=== PATIENT | male | born 1935 | race Two or more races ===

== ENCOUNTER → 2018-07-22 | Outpatient (CLI) | payer MEDICARE, BC ==
[2018-07-22 12:01] LABS: Basophils # (auto) 0.1 uL; Basophils % (auto) 1.3 % (0.0-2.0); Eosinophils # (auto) 0.3 uL; Eosinophils % (auto) 3.9 % (0.0-7.0); Hematocrit 45.4 % (41.0-53.0); Hemoglobin 15.5 g/dL (13.5-17.5); Lymphocytes # (auto) 1.9 uL; Mean Corpuscular Hemoglobin 33.3 pg (28.0-32.0); Mean Corpuscular Hgb Conc. 34.2 g/dL (32.0-36.0); Mean Corpuscular Volume 97.3 fL (80.0-100.0); Monocytes # (auto) 0.7 uL; Monocytes % (auto) 8.3 % (0.0-12.0); Neutrophils # (auto) 5.3 uL; Neutrophils % (auto) 63.5 % (37.0-80.0); Nucleated Red Blood Cells % 0.1 %; Platelet Count (auto) 214 10^3/uL (140-450); Red Blood Cells 4.66 10^6/uL (4.5-5.90); Red Cell Distribution Width 14.3 % (11.8-14.3); White Blood Cell 8.4 10^3/uL (4.4-10.8)
[2018-07-22 12:06] LABS: Urine Bacteria NONE SEEN /hpf (None Seen); Urine Blood Negative /uL (Negative); Urine Specific Gravity 1.015 (1.001-1.035); Urine WBC 1 /hpf (0 - 3)
[2018-07-22 12:17] LABS: Prothrombin Time 10.7 sec (9.27-12.13)
[2018-07-22 12:59] LABS: Albumin 4.4 g/dL (3.4-5.0); Calcium 9.2 mg/dL (8.5-10.1); Potassium 5.3 mmol/L (3.5-5.1); Total Protein 8.1 g/dL (6.4-8.2)
== END | disposition home or self-care (01) ==
LOC: LAB 11:14
PROVIDERS: ATTEND Internal Medicine Cardiovascular Disease
DX: Z01.812 Encounter for preprocedural laboratory examination (principal); R00.1 Bradycardia, unspecified
CPT/HCPCS: 36415; 80053; 81001; 85025; 85610; 85730

== ENCOUNTER → 2018-07-25 | Outpatient (CLI) | payer MEDICARE, BC ==
[2018-07-25 10:16] LABS: BUN/Creatinine Ratio 20.4; Calcium 8.6 mg/dL (8.5-10.1); Potassium 3.7 mmol/L (3.5-5.1)
== END | disposition home or self-care (01) ==
LOC: LAB 09:15
PROVIDERS: ATTEND Internal Medicine Cardiovascular Disease
DX: I11.9 Hypertensive heart disease without heart failure (principal); E87.5 Hyperkalemia; R00.1 Bradycardia, unspecified
CPT/HCPCS: 36415; 80048

== ENCOUNTER → 2018-08-12 | Outpatient (CLI) | payer MEDICARE, BC ==
[2018-08-12 09:33] LABS: Urine WBC None Seen /hpf (0 - 3)
[2018-08-12 09:55] LABS: Basophils # (auto) 0.1 uL; Eosinophils # (auto) 0.5 uL; Hematocrit 41.6 % (41.0-53.0); Hemoglobin 14.4 g/dL (13.5-17.5); Lymphocytes # (auto) 1.3 uL; Lymphocytes % (auto) 17.1 % (10.0-50.0); Mean Corpuscular Hemoglobin 33.4 pg (28.0-32.0); Mean Corpuscular Hgb Conc. 34.6 g/dL (32.0-36.0); Mean Corpuscular Volume 96.5 fL (80.0-100.0); Monocytes # (auto) 0.7 uL; Monocytes % (auto) 9.5 % (0.0-12.0); Neutrophils % (auto) 65.4 % (37.0-80.0); Nucleated Red Blood Cells % 0.1 %; Platelet Count (auto) 198 10^3/uL (140-450); Red Blood Cells 4.31 10^6/uL (4.5-5.90); Red Cell Distribution Width 13.3 % (11.8-14.3); White Blood Cell 7.6 10^3/uL (4.4-10.8)
[2018-08-12 11:00] LABS: INR 0.99 (0.9-1.15); Prothrombin Time 10.6 sec (9.27-12.13); Urine Bacteria NONE SEEN /hpf (None Seen); Urine Blood Negative /uL (Negative); Urine Specific Gravity 1.012 (1.001-1.035)
[2018-08-12 11:12] LABS: Potassium 4.2 mmol/L (3.5-5.1)
[2018-08-12 11:24] LABS: Albumin 3.9 g/dL (3.4-5.0); BUN/Creatinine Ratio 17.8; Calcium 8.1 mg/dL (8.5-10.1); Total Protein 7.3 g/dL (6.4-8.2)
== END | disposition home or self-care (01) ==
LOC: LAB 09:13
PROVIDERS: ATTEND Internal Medicine Cardiovascular Disease
DX: Z01.810 Encounter for preprocedural cardiovascular examination (principal); I11.9 Hypertensive heart disease without heart failure; E87.5 Hyperkalemia; R00.1 Bradycardia, unspecified; Z95.0 Presence of cardiac pacemaker
CPT/HCPCS: 36415; 80053; 81001; 85025; 85610; 85730

== ENCOUNTER → 2019-04-07 | Outpatient (CLI) | payer MEDICARE, BC ==
[~2019-04-07] VITALS: Ht 170.2 cm; Wt 72.6 kg
[~2019-04-07] MED LIST: ADENOSINE 61 MG in GIVE UN-DILUTED 0 ML IV STA
[2019-04-07 09:35] VITALS: BP 160/90
== END | disposition home or self-care (01) ==
LOC: XYW 08:28
PROVIDERS: ATTEND Internal Medicine
DX: I48.2 Chronic atrial fibrillation (principal)
CPT/HCPCS: 78452; 93017; A9500; J0153

== ENCOUNTER → 2019-04-29 | Outpatient (CLI) | payer MEDICARE, BC | END | disposition home or self-care (01) | LOC: XYW 09:46 | PROVIDERS: ATTEND Internal Medicine | DX: I08.1 Rheumatic disorders of both mitral and tricuspid valves (principal); I48.2 Chronic atrial fibrillation | CPT/HCPCS: 93306 ==

== ENCOUNTER → 2019-05-20 | Outpatient (CLI) | payer MEDICARE, BC ==
[2019-05-20 10:09] LABS: Basophils # (auto) 0.1 uL; Basophils % (auto) 0.9 % (0.0-2.0); Eosinophils # (auto) 0.3 uL; Eosinophils % (auto) 4.1 % (0.0-7.0); Hematocrit 42.2 % (41.0-53.0); Hemoglobin 14.5 g/dL (13.5-17.5); Lymphocytes # (auto) 1.7 uL; Lymphocytes % (auto) 26.5 % (10.0-50.0); Mean Corpuscular Hemoglobin 33.3 pg (28.0-32.0); Mean Corpuscular Hgb Conc. 34.4 g/dL (32.0-36.0); Mean Corpuscular Volume 96.7 fL (80.0-100.0); Monocytes # (auto) 0.6 uL; Monocytes % (auto) 9.2 % (0.0-12.0); Neutrophils # (auto) 3.7 uL; Neutrophils % (auto) 59.3 % (37.0-80.0); Platelet Count (auto) 190 10^3/uL (140-450); Red Blood Cells 4.36 10^6/uL (4.5-5.90); Red Cell Distribution Width 13.5 % (11.8-14.3); White Blood Cell 6.3 10^3/uL (4.4-10.8)
[2019-05-20 10:38] LABS: Potassium 4.3 mmol/L (3.5-5.1)
[2019-05-20 11:08] LABS: BUN/Creatinine Ratio 18.6; Calcium 8.9 mg/dL (8.5-10.1); Total Protein 7.3 g/dL (6.4-8.2)
== END | disposition home or self-care (01) ==
LOC: LAB 09:41
PROVIDERS: ATTEND Physician Assistant
DX: Z12.5 Encounter for screening for malignant neoplasm of prostate (principal); I12.9 Hypertensive chronic kidney disease with stage 1 through stage 4 chronic kidney disease, or unspecified chronic kidney disease; N18.2 Chronic kidney disease, stage 2 (mild); I11.9 Hypertensive heart disease without heart failure; I48.2 Chronic atrial fibrillation
CPT/HCPCS: 36415; 80053; 80061; 84153; 85025

== ENCOUNTER → 2019-09-11 | Outpatient (CLI) | payer MEDICARE, BC ==
[~2019-09-11] MED LIST changes: -ADENOSINE 61 MG in GIVE UN-DILUTED 0 ML IV STA; +AMLO5TAB15 PO; +RIVA20TA PO
[2019-09-11 10:59] VITALS: BP 159/67
[2019-09-11 11:15] VITALS: BP 158/66
--- NOTE | 2019-09-11 11:15 | NUR ---
Pre-Op Discharge Summary: See e-MAR for any medications given for this visit. Pre-op orders received and carried out per MD of EKG, LABS and prescription given for chest xrays. Patient given a copy of EKG with instructions to go to [facility] out patient for further follow up care.
[2019-09-11 15:16] LABS: Basophils # (auto) 0.1 uL; Basophils % (auto) 1.1 % (0.0-2.0); Eosinophils # (auto) 0.4 uL; Eosinophils % (auto) 5.6 % (0.0-7.0); Hematocrit 42.4 % (41.0-53.0); Hemoglobin 14.5 g/dL (13.5-17.5); Lymphocytes # (auto) 1.4 uL; Lymphocytes % (auto) 17.9 % (10.0-50.0); Mean Corpuscular Hemoglobin 33.8 pg (28.0-32.0); Mean Corpuscular Hgb Conc. 34.2 g/dL (32.0-36.0); Mean Corpuscular Volume 98.7 fL (80.0-100.0); Monocytes # (auto) 0.7 uL; Monocytes % (auto) 8.9 % (0.0-12.0); Neutrophils # (auto) 5.1 uL; Neutrophils % (auto) 66.5 % (37.0-80.0); Nucleated Red Blood Cells % 0.1 %; Platelet Count (auto) 199 10^3/uL (140-450); Red Cell Distribution Width 13.7 % (11.8-14.3); White Blood Cell 7.6 10^3/uL (4.4-10.8)
[2019-09-11 15:23] LABS: BUN/Creatinine Ratio 15.1; Calcium 8.4 mg/dL (8.5-10.1); Potassium 4.1 mmol/L (3.5-5.1)
[2019-09-11 15:25] LABS: INR 1.23 (0.9-1.15)
== END | disposition home or self-care (01) ==
LOC: Rad HDHVI 10:48
PROVIDERS: ATTEND Internal Medicine Cardiovascular Disease
DX: Z01.812 Encounter for preprocedural laboratory examination (principal); I25.10 Atherosclerotic heart disease of native coronary artery without angina pectoris; I10 Essential (primary) hypertension; E78.5 Hyperlipidemia, unspecified; Z87.891 Personal history of nicotine dependence
CPT/HCPCS: 36415; 80048; 85025; 85610; 85730; 93005; G0463

== ENCOUNTER → 2019-10-06 | Outpatient (CLI) | payer MEDICARE, BC ==
[2019-10-06 10:11] VITALS: BP 158/64
[2019-10-06 10:37] VITALS: BP 147/59
--- NOTE | 2019-10-06 10:37 | NUR ---
Pre-Op Discharge Summary: See e-MAR for any medications given for this visit. Pre-op orders received and carried out per MD of EKG, LABS and chest xrays. Patient given a copy of EKG with instructions to go to [facility] out patient for further follow up care.
[2019-10-06 12:13] LABS: Calcium 8.7 mg/dL (8.5-10.1); Potassium 4.2 mmol/L (3.5-5.1)
[2019-10-06 12:18] LABS: Basophils # (auto) 0.1 uL; Basophils % (auto) 1.8 % (0.0-2.0); Eosinophils # (auto) 0.2 uL; Eosinophils % (auto) 3.9 % (0.0-7.0); Hematocrit 43.8 % (41.0-53.0); Hemoglobin 15.2 g/dL (13.5-17.5); Lymphocytes # (auto) 1.5 uL; Lymphocytes % (auto) 25.8 % (10.0-50.0); Mean Corpuscular Hemoglobin 33.6 pg (28.0-32.0); Mean Corpuscular Hgb Conc. 34.6 g/dL (32.0-36.0); Mean Corpuscular Volume 97.2 fL (80.0-100.0); Monocytes # (auto) 0.6 uL; Monocytes % (auto) 10.1 % (0.0-12.0); Neutrophils # (auto) 3.4 uL; Neutrophils % (auto) 58.4 % (37.0-80.0); Nucleated Red Blood Cells % 0.1 %; Platelet Count (auto) 253 10^3/uL (140-450); Red Cell Distribution Width 13.1 % (11.8-14.3); White Blood Cell 5.8 10^3/uL (4.4-10.8)
[2019-10-06 12:23] LABS: INR 1.13 (0.9-1.15); Partial Thromboplastin Time 29.7 sec (23.64-32.05)
== END | disposition home or self-care (01) ==
LOC: Rad HDHVI 09:58
PROVIDERS: ATTEND Internal Medicine Cardiovascular Disease
DX: Z01.812 Encounter for preprocedural laboratory examination (principal); I70.0 Atherosclerosis of aorta; I51.7 Cardiomegaly
CPT/HCPCS: 36415; 71046; 80048; 85025; 85610; 85730; 93005; G0463

== ENCOUNTER → 2019-11-30 | Outpatient (CLI) | payer MEDICARE, BC | END | disposition home or self-care (01) | LOC: Rad HDHVI 09:51 | PROVIDERS: ATTEND Internal Medicine Cardiovascular Disease | DX: I08.1 Rheumatic disorders of both mitral and tricuspid valves (principal); I21.9 Acute myocardial infarction, unspecified; I25.5 Ischemic cardiomyopathy; I50.43 Acute on chronic combined systolic (congestive) and diastolic (congestive) heart failure | CPT/HCPCS: 93306 ==

== ENCOUNTER → 2019-12-02 | Outpatient (CLI) | payer MEDICARE, BC ==
[~2019-12-02] VITALS: Ht 170.2 cm; Wt 73.5 kg
== END | disposition home or self-care (01) ==
LOC: Rad HDHVI 09:20
PROVIDERS: ATTEND Internal Medicine Cardiovascular Disease
DX: I10 Essential (primary) hypertension (principal); I25.10 Atherosclerotic heart disease of native coronary artery without angina pectoris; I25.2 Old myocardial infarction; Z95.5 Presence of coronary angioplasty implant and graft; Z95.0 Presence of cardiac pacemaker
CPT/HCPCS: 78452; 93017; 96374; A9500

== ENCOUNTER → 2020-01-21 | Outpatient (CLI) | payer MEDICARE, BC ==
[~2020-01-21] VITALS: Ht 170.2 cm; Wt 71.2 kg
== END | disposition home or self-care (01) ==
LOC: Rad HDHVI 12:53
PROVIDERS: ATTEND Internal Medicine Cardiovascular Disease
DX: I25.10 Atherosclerotic heart disease of native coronary artery without angina pectoris (principal); I25.2 Old myocardial infarction; I11.0 Hypertensive heart disease with heart failure; I50.42 Chronic combined systolic (congestive) and diastolic (congestive) heart failure; Z95.0 Presence of cardiac pacemaker; Z95.1 Presence of aortocoronary bypass graft
CPT/HCPCS: 78472; 96374; 96375; A9505

== ENCOUNTER → 2020-09-22 | Outpatient (CLI) | payer MEDICARE, BC ==
[2020-09-22 10:27] LABS: Basophils # (auto) 0.1 10 ^3/uL (0-0.2); Basophils % (auto) 1.8 % (0.0-2.0); Eosinophils # (auto) 0.3 10 ^3/uL (0-0.8); Hematocrit 43.4 % (41.0-53.0); Hemoglobin 14.6 g/dL (13.5-17.5); Lymphocytes # (auto) 1.3 10 ^3/uL (0.4-5.4); Lymphocytes % (auto) 19.1 % (10.0-50.0); Mean Corpuscular Hemoglobin 32.8 pg (28.0-32.0); Mean Corpuscular Hgb Conc. 33.7 g/dL (32.0-36.0); Mean Corpuscular Volume 97.3 fL (80.0-100.0); Monocytes # (auto) 0.6 10 ^3/uL (0-1.3); Monocytes % (auto) 8.1 % (0.0-12.0); Neutrophils # (auto) 4.5 10 ^3/uL (1.6-8.6); Nucleated Red Blood Cells % 0.1 %; Platelet Count (auto) 189 10^3/uL (140-450); Red Blood Cells 4.46 10^6/uL (4.5-5.90); Red Cell Distribution Width 13.2 % (11.8-14.3); White Blood Cell 6.8 10^3/uL (4.4-10.8)
[2020-09-22 10:56] LABS: Albumin 4.3 g/dL (3.4-5.0); Potassium 4.2 mmol/L (3.5-5.1)
[2020-09-22 11:03] LABS: BUN/Creatinine Ratio 15.4; Bilirubin, Total 0.9 mg/dL (0.2-1.0); Total Protein 7.5 g/dL (6.4-8.2)
== END | disposition home or self-care (01) ==
LOC: LAB 09:56
PROVIDERS: ATTEND Physician Assistant
DX: I12.9 Hypertensive chronic kidney disease with stage 1 through stage 4 chronic kidney disease, or unspecified chronic kidney disease (principal); N18.30 Chronic kidney disease, stage 3 unspecified; I25.10 Atherosclerotic heart disease of native coronary artery without angina pectoris; R35.1 Nocturia; I48.20 Chronic atrial fibrillation, unspecified
CPT/HCPCS: 36415; 80053; 80061; 84153; 85025

== ENCOUNTER → 2020-10-04 | Outpatient (CLI) | payer MEDICARE, BC | END | disposition home or self-care (01) | LOC: Rad HDHVI 10:00 | PROVIDERS: ATTEND Internal Medicine Cardiovascular Disease | DX: I08.1 Rheumatic disorders of both mitral and tricuspid valves (principal); I27.20 Pulmonary hypertension, unspecified; I50.23 Acute on chronic systolic (congestive) heart failure; I25.5 Ischemic cardiomyopathy | CPT/HCPCS: 93306 ==

== ENCOUNTER → 2020-11-22 | Outpatient (CLI) | payer MEDICARE, BC ==
[2020-11-22 11:05] LABS: Basophils # (auto) 0.1 10 ^3/uL (0-0.2); Basophils % (auto) 1.2 % (0.0-2.0); Eosinophils # (auto) 0.2 10 ^3/uL (0-0.8); Eosinophils % (auto) 3.7 % (0.0-7.0); Hemoglobin 14.2 g/dL (13.5-17.5); Lymphocytes # (auto) 1.4 10 ^3/uL (0.4-5.4); Lymphocytes % (auto) 23.2 % (10.0-50.0); Mean Corpuscular Hemoglobin 33.3 pg (28.0-32.0); Mean Corpuscular Hgb Conc. 34.6 g/dL (32.0-36.0); Mean Corpuscular Volume 96.1 fL (80.0-100.0); Monocytes # (auto) 0.6 10 ^3/uL (0-1.3); Monocytes % (auto) 9.3 % (0.0-12.0); Neutrophils # (auto) 3.9 10 ^3/uL (1.6-8.6); Neutrophils % (auto) 62.6 % (37.0-80.0); Platelet Count (auto) 201 10^3/uL (140-450); Red Blood Cells 4.26 10^6/uL (4.5-5.90); Red Cell Distribution Width 13.3 % (11.8-14.3); White Blood Cell 6.2 10^3/uL (4.4-10.8)
[2020-11-22 11:08] LABS: Urine Blood Negative /uL (Negative); Urine Specific Gravity 1.016 (1.001-1.035)
[2020-11-22 11:22] LABS: INR 1.05 (0.9-1.15); Partial Thromboplastin Time 27.7 sec (23.0-31.2)
[2020-11-22 12:04] LABS: Potassium 4.4 mmol/L (3.5-5.1)
[2020-11-22 12:16] LABS: Albumin 3.9 g/dL (3.4-5.0); BUN/Creatinine Ratio 18.5; Bilirubin, Total 0.8 mg/dL (0.2-1.0); Calcium 8.6 mg/dL (8.5-10.1); Total Protein 7.5 g/dL (6.4-8.2)
== END | disposition home or self-care (01) ==
LOC: LAB 10:38
PROVIDERS: ATTEND Specialist
DX: Z01.812 Encounter for preprocedural laboratory examination (principal); H25.12 Age-related nuclear cataract, left eye; D68.9 Coagulation defect, unspecified; Z79.01 Long term (current) use of anticoagulants
CPT/HCPCS: 36415; 80053; 81003; 85025; 85610; 85730

== ENCOUNTER → 2021-01-12 | Outpatient (CLI) | payer MEDICARE, BC ==
[~2021-01-12] MED LIST changes: +AMLO-489 PO; -AMLO5TAB15 PO
[2021-01-12 09:40] LABS: Urine Blood Negative /uL (Negative)
[2021-01-12 09:41] LABS: Basophils # (auto) 0.1 10 ^3/uL (0-0.2); Basophils % (auto) 1.4 % (0.0-2.0); Eosinophils # (auto) 0.3 10 ^3/uL (0-0.8); Eosinophils % (auto) 5.4 % (0.0-7.0); Hematocrit 39.7 % (41.0-53.0); Hemoglobin 13.8 g/dL (13.5-17.5); Lymphocytes # (auto) 1.4 10 ^3/uL (0.4-5.4); Lymphocytes % (auto) 21.8 % (10.0-50.0); Mean Corpuscular Hemoglobin 33.6 pg (28.0-32.0); Mean Corpuscular Hgb Conc. 34.7 g/dL (32.0-36.0); Mean Corpuscular Volume 96.9 fL (80.0-100.0); Monocytes # (auto) 0.5 10 ^3/uL (0-1.3); Monocytes % (auto) 8.3 % (0.0-12.0); Neutrophils # (auto) 4.1 10 ^3/uL (1.6-8.6); Neutrophils % (auto) 63.1 % (37.0-80.0); Nucleated Red Blood Cells % 0.2 %; Platelet Count (auto) 202 10^3/uL (140-450); Red Blood Cells 4.09 10^6/uL (4.5-5.90); Red Cell Distribution Width 13.3 % (11.8-14.3); White Blood Cell 6.5 10^3/uL (4.4-10.8)
[2021-01-12 09:55] LABS: Partial Thromboplastin Time 25.4 sec (23.0-31.2)
[2021-01-12 10:18] LABS: Potassium 4.6 mmol/L (3.5-5.1)
[2021-01-12 10:27] LABS: Bilirubin, Total 0.9 mg/dL (0.2-1.0); Calcium 8.7 mg/dL (8.5-10.1); Total Protein 7.4 g/dL (6.4-8.2)
== END | disposition home or self-care (01) ==
LOC: LAB 09:21
PROVIDERS: ATTEND Specialist
DX: Z01.812 Encounter for preprocedural laboratory examination (principal); H25.11 Age-related nuclear cataract, right eye; D68.9 Coagulation defect, unspecified; Z79.01 Long term (current) use of anticoagulants
CPT/HCPCS: 36415; 80053; 81003; 85025; 85610; 85730

== ENCOUNTER → 2021-02-03 | Outpatient (CLI) | payer MEDICARE, BC ==
[~2021-02-03] VITALS: Ht 170.2 cm; Wt 74.8 kg
[~2021-02-03] MED LIST changes: +B-COTAB59 PO; +CALC-312 PO; +LISI-648 PO; +MULT-1066 PO; +RIVA2.5T PO
[2021-02-03 09:17] VITALS: BP 151/84
[2021-02-03 09:32] VITALS: BP 150/79
[2021-02-03 11:33] LABS: Basophils # (auto) 0.1 10 ^3/uL (0-0.2); Basophils % (auto) 2.2 % (0.0-2.0); Eosinophils # (auto) 0.3 10 ^3/uL (0-0.8); Eosinophils % (auto) 4.8 % (0.0-7.0); Hemoglobin 13.9 g/dL (13.5-17.5); Lymphocytes # (auto) 1.5 10 ^3/uL (0.4-5.4); Lymphocytes % (auto) 24.3 % (10.0-50.0); Mean Corpuscular Hemoglobin 33.9 pg (28.0-32.0); Mean Corpuscular Hgb Conc. 34.8 g/dL (32.0-36.0); Mean Corpuscular Volume 97.6 fL (80.0-100.0); Monocytes # (auto) 0.5 10 ^3/uL (0-1.3); Monocytes % (auto) 7.7 % (0.0-12.0); Neutrophils # (auto) 3.9 10 ^3/uL (1.6-8.6); Nucleated Red Blood Cells % 0.2 %; Platelet Count (auto) 198 10^3/uL (140-450); Red Cell Distribution Width 13.6 % (11.8-14.3); White Blood Cell 6.4 10^3/uL (4.4-10.8)
[2021-02-03 11:44] LABS: Potassium 4.3 mmol/L (3.5-5.1)
[2021-02-03 11:46] LABS: BUN/Creatinine Ratio 15.2; Calcium 9.2 mg/dL (8.5-10.1)
[2021-02-03 11:51] LABS: INR 1.08 (0.9-1.15); Partial Thromboplastin Time 27.6 sec (23.0-31.2)
== END | disposition home or self-care (01) ==
LOC: Rad HDHVI 08:56
PROVIDERS: ATTEND Internal Medicine Cardiovascular Disease
DX: Z01.812 Encounter for preprocedural laboratory examination (principal); I25.5 Ischemic cardiomyopathy; I11.0 Hypertensive heart disease with heart failure; I50.9 Heart failure, unspecified; R06.02 Shortness of breath
CPT/HCPCS: 36415; 80048; 85025; 85610; 85730; 93005; G0463

== ENCOUNTER 2021-02-09 08:54 | Inpatient (IN) | payer MEDICARE, BC ==
[~2021-02-09] VITALS: Ht 170.2 cm; Wt 78.0 kg
[~2021-02-09 08:54] MED LIST changes: -RIVA20TA PO
[2021-02-09] MEDS ORDERED: VANCOMYCIN 1GM/250ML 250 ML IV ONE ×2 (09:55→10:00)
[2021-02-09] MEDS ORDERED: LIDOCAINE 2%HCL (LOCAL ANESTH.) INJ 20ML MDV ONE (11:36)
[2021-02-09] MEDS ORDERED: VANCOMYCIN HCL 1000 MG VL ONE (11:41)
[2021-02-09] MEDS ORDERED: fentaNYL CITRATE 100 MCG/2 ML VL ONE (11:42)
[2021-02-09] MEDS ORDERED: MIDAZOLAM HCL 1MG/1ML-2 ML VIAL ONE (11:43)
[2021-02-09] MEDS ORDERED: FUROSEMIDE 20 MG/2 ML VIAL ONE ×2 (12:48→12:49)
[2021-02-09] MEDS ORDERED: LIDOCAINE W/ EPINEPHRINE 2% INJ 20ML VIAL ONE (13:00)
[2021-02-09] MEDS ORDERED: MORPHINE SULF INJ 2 MG/ML SYRINGE 1ML IV PRN (14:00)
[2021-02-09] MEDS ORDERED: NITROGLYCERIN 0.4 MG SL TAB SL PRN (14:00)
[2021-02-09] MEDS ORDERED: HYDROcodone-ACET 5/325MG TAB PO PRN (14:00)
[2021-02-09] MEDS ORDERED: ACETAMINOPHEN 325 MG TAB PO PRN (14:00)
[2021-02-09] MEDS ORDERED: ceFAZolin 1GM 2 GM in D5W 5% 100 ML IV ONE (14:15)
[2021-02-09 16:22] VITALS: BP 118/52
[2021-02-09 16:32] VITALS: BP 118/52
[2021-02-09] MEDS ORDERED: amLODIPine BESYLATE 5 MG TAB PO SCH (18:00)
[2021-02-09 22:00] VITALS: BP 110/56
[2021-02-09] MEDS ORDERED: LISINOPRIL 10 MG TAB PO SCH (22:00)
[2021-02-10 05:00] VITALS: BP 109/63
[2021-02-10 09:00] VITALS: BP 113/67
[2021-02-10] MEDS ORDERED: B-COMPLEX W/ C & FOLIC ACID(NEPHROVITE TAB) PO SCH (10:00)
[2021-02-10] MEDS ORDERED: MULTIPLE VITAMIN TAB PO SCH (10:00)
[2021-02-10] MEDS ORDERED: CALCIUM 500 MG PO SCH (10:00)
[2021-02-10 13:00] VITALS: BP 108/62
[2021-02-10 15:56] VITALS: BP 108/62
== END 2021-02-10 17:08 | disposition home or self-care (01) | DRG 227 ==
LOC: CATH 08:54 → TELE 13:56 → TELE-WESTW 15:55
PROVIDERS: ADMIT Internal Medicine Cardiovascular Disease; ATTEND Internal Medicine Cardiovascular Disease
PROC: 02PA3MZ Removal of Cardiac Lead from Heart, Percutaneous Approach (ICD-10-PCS; principal; 2021-02-09)
PROC: 0JH609Z Insertion of Cardiac Resynchronization Defibrillator Pulse Generator into Chest Subcutaneous Tissue and Fascia, Open Approach (ICD-10-PCS; 2021-02-09)
PROC: 02HK3KZ Insertion of Defibrillator Lead into Right Ventricle, Percutaneous Approach (ICD-10-PCS; 2021-02-09)
PROC: 02HL3KZ Insertion of Defibrillator Lead into Left Ventricle, Percutaneous Approach (ICD-10-PCS; 2021-02-09)
PROC: 0JPT0PZ Removal of Cardiac Rhythm Related Device from Trunk Subcutaneous Tissue and Fascia, Open Approach (ICD-10-PCS; 2021-02-09)
DX: I50.21 Acute systolic (congestive) heart failure (principal); D68.59 Other primary thrombophilia; I48.20 Chronic atrial fibrillation, unspecified; I25.10 Atherosclerotic heart disease of native coronary artery without angina pectoris; I25.5 Ischemic cardiomyopathy; I25.2 Old myocardial infarction; Z87.891 Personal history of nicotine dependence; Z98.61 Coronary angioplasty status; I49.5 Sick sinus syndrome; Z20.822 Contact with and (suspected) exposure to COVID-19
CPT/HCPCS: 33223; 33225; 33249; 71045; 99152; 99153; G0378; J0690; J2250; J7060

== ENCOUNTER → 2021-02-21 | Outpatient (CLI) | payer MEDICARE, BC | END | disposition home or self-care (01) | LOC: LAB 13:06 | PROVIDERS: ATTEND Family Medicine | DX: L57.0 Actinic keratosis (principal) | CPT/HCPCS: 88302 ==

== ENCOUNTER → 2021-02-22 | Outpatient (CLI) | payer MEDICARE, BC | END | disposition home or self-care (01) | LOC: Rad HDHVI 12:50 | PROVIDERS: ATTEND Internal Medicine Cardiovascular Disease | DX: I10 Essential (primary) hypertension (principal); R06.02 Shortness of breath | CPT/HCPCS: 93306 ==

== ENCOUNTER → 2021-02-28 | Outpatient (CLI) | payer MEDICARE, BC ==
[~2021-02-28] MED LIST changes: -LISI-648 PO; +LISI-716 PO
== END | disposition home or self-care (01) ==
LOC: LAB 08:00
PROVIDERS: ATTEND Family Medicine
DX: L82.1 Other seborrheic keratosis (principal)

== ENCOUNTER → 2021-03-10 | Outpatient (CLI) | payer MEDICARE, BC | END | disposition home or self-care (01) | LOC: LAB 11:45 | PROVIDERS: ATTEND Family Medicine | DX: L82.1 Other seborrheic keratosis (principal) ==

== ENCOUNTER → 2021-09-26 | Outpatient (CLI) | payer MEDICARE, BC ==
[2021-09-26 10:39] LABS: Basophils # (auto) 0.1 10 ^3/uL (0-0.2); Basophils % (auto) 1.3 % (0.0-2.0); Eosinophils # (auto) 0.3 10 ^3/uL (0-0.8); Eosinophils % (auto) 3.9 % (0.0-7.0); Hematocrit 42.6 % (41.0-53.0); Hemoglobin 14.6 g/dL (13.5-17.5); Lymphocytes # (auto) 1.5 10 ^3/uL (0.4-5.4); Lymphocytes % (auto) 22.7 % (10.0-50.0); Mean Corpuscular Hemoglobin 33.3 pg (28.0-32.0); Mean Corpuscular Hgb Conc. 34.2 g/dL (32.0-36.0); Mean Corpuscular Volume 97.3 fL (80.0-100.0); Monocytes # (auto) 0.6 10 ^3/uL (0-1.3); Monocytes % (auto) 8.7 % (0.0-12.0); Neutrophils # (auto) 4.1 10 ^3/uL (1.6-8.6); Neutrophils % (auto) 63.4 % (37.0-80.0); Nucleated Red Blood Cells % 0.1 %; Red Blood Cells 4.38 10^6/uL (4.5-5.90); Red Cell Distribution Width 12.6 % (11.8-14.3); White Blood Cell 6.5 10^3/uL (4.4-10.8)
[2021-09-26 11:06] LABS: Potassium 5.1 mmol/L (3.5-5.1)
[2021-09-26 11:17] LABS: BUN/Creatinine Ratio 18.3; Bilirubin, Total 0.6 mg/dL (0.2-1.0); Calcium 8.9 mg/dL (8.5-10.1); Total Protein 7.1 g/dL (6.4-8.2)
== END | disposition home or self-care (01) ==
LOC: LAB 10:05
PROVIDERS: ATTEND Nurse Practitioner Family
DX: I10 Essential (primary) hypertension (principal); E03.9 Hypothyroidism, unspecified; I27.20 Pulmonary hypertension, unspecified
CPT/HCPCS: 36415; 80053; 80061; 84443; 85025

== ENCOUNTER → 2021-12-19 | Outpatient (CLI) | payer MEDICARE, BC ==
[2021-12-19 12:40] LABS: Prostate Specific Antigen 3.07 ng/mL (0.0-4.0)
[2021-12-19 12:41] LABS: Free T4 (Free Thyroxine) 1.04 ng/dL (0.89-1.76)
== END | disposition home or self-care (01) ==
LOC: LAB 09:56
PROVIDERS: ATTEND Nurse Practitioner Family
DX: I10 Essential (primary) hypertension (principal); R35.1 Nocturia
CPT/HCPCS: 84153; 84439

== ENCOUNTER → 2022-01-01 | Outpatient (CLI) | payer MEDICARE, BC | END | disposition home or self-care (01) | LOC: Rad HDHVI 08:01 | PROVIDERS: ATTEND Internal Medicine Cardiovascular Disease | DX: I08.1 Rheumatic disorders of both mitral and tricuspid valves (principal); I10 Essential (primary) hypertension; R06.02 Shortness of breath | CPT/HCPCS: 93306 ==

== ENCOUNTER → 2022-02-05 | Outpatient (CLI) | payer MEDICARE, BC ==
[2022-02-05 11:45] LABS: Basophils # (auto) 0.1 10 ^3/uL (0-0.2); Basophils % (auto) 1.9 % (0.0-2.0); Eosinophils # (auto) 0.4 10 ^3/uL (0-0.8); Hemoglobin 12.9 g/dL (13.5-17.5); Lymphocytes # (auto) 1.2 10 ^3/uL (0.4-5.4); Lymphocytes % (auto) 20.3 % (10.0-50.0); Mean Corpuscular Hemoglobin 33.4 pg (28.0-32.0); Mean Corpuscular Hgb Conc. 34.8 g/dL (32.0-36.0); Mean Corpuscular Volume 96.1 fL (80.0-100.0); Monocytes # (auto) 0.5 10 ^3/uL (0-1.3); Monocytes % (auto) 8.8 % (0.0-12.0); Neutrophils # (auto) 3.7 10 ^3/uL (1.6-8.6); Nucleated Red Blood Cells % 0.1 %; Red Blood Cells 3.86 10^6/uL (4.5-5.90); Red Cell Distribution Width 12.9 % (11.8-14.3)
[2022-02-05 12:15] LABS: Albumin 3.8 g/dL (3.4-5.0); Calcium 8.8 mg/dL (8.5-10.1); Potassium 4.7 mmol/L (3.5-5.1)
[2022-02-05 12:20] LABS: Free T4 (Free Thyroxine) 1.35 ng/dL (0.89-1.76); Prostate Specific Antigen 2.92 ng/mL (0.0-4.0)
[2022-02-05 12:21] LABS: BUN/Creatinine Ratio 15.4; Bilirubin, Total 0.7 mg/dL (0.2-1.0)
== END | disposition home or self-care (01) ==
LOC: LAB 09:15
PROVIDERS: ATTEND Internal Medicine Cardiovascular Disease
DX: C61 Malignant neoplasm of prostate (principal); E11.9 Type 2 diabetes mellitus without complications; D51.3 Other dietary vitamin B12 deficiency anemia; D64.9 Anemia, unspecified; E55.9 Vitamin D deficiency, unspecified; I10 Essential (primary) hypertension; R00.2 Palpitations; R53.1 Weakness; R30.0 Dysuria
CPT/HCPCS: 36415; 80053; 80061; 82306; 82607; 83036; 84153; 84403; 84439; 84443; 85025

== ENCOUNTER → 2022-02-19 | Outpatient (CLI) | payer MEDICARE, BC | END | disposition home or self-care (01) | LOC: Rad HDHVI 07:58 | PROVIDERS: ATTEND Internal Medicine Cardiovascular Disease | DX: I70.201 Unspecified atherosclerosis of native arteries of extremities, right leg (principal); I70.202 Unspecified atherosclerosis of native arteries of extremities, left leg; E78.5 Hyperlipidemia, unspecified | CPT/HCPCS: 93925 ==

== ENCOUNTER → 2022-05-15 | Outpatient (CLI) | payer MEDICARE, BC ==
[2022-05-15 08:29] VITALS: BP 137/62
[2022-05-15 08:44] VITALS: BP 120/55
[2022-05-15 11:25] LABS: Basophils # (auto) 0.1 10 ^3/uL (0-0.2); Basophils % (auto) 0.9 % (0.0-2.0); Eosinophils # (auto) 0.2 10 ^3/uL (0-0.8); Eosinophils % (auto) 2.3 % (0.0-7.0); Hematocrit 40.1 % (41.0-53.0); Hemoglobin 13.1 g/dL (13.5-17.5); Lymphocytes # (auto) 1.3 10 ^3/uL (0.4-5.4); Lymphocytes % (auto) 17.7 % (10.0-50.0); Mean Corpuscular Hemoglobin 31.6 pg (28.0-32.0); Mean Corpuscular Hgb Conc. 32.7 g/dL (32.0-36.0); Mean Corpuscular Volume 96.5 fL (80.0-100.0); Monocytes # (auto) 0.6 10 ^3/uL (0-1.3); Neutrophils % (auto) 70.1 % (37.0-80.0); Red Blood Cells 4.15 10^6/uL (4.5-5.90); Red Cell Distribution Width 12.7 % (11.8-14.3); White Blood Cell 7.1 10^3/uL (4.4-10.8)
[2022-05-15 11:34] LABS: BUN/Creatinine Ratio 13.1; Calcium 8.7 mg/dL (8.5-10.1); Potassium 4.1 mmol/L (3.5-5.1)
[2022-05-15 11:46] LABS: INR 0.99 (0.9-1.15); Partial Thromboplastin Time 27.3 sec (24.6-33.4)
== END | disposition home or self-care (01) ==
LOC: Rad HDHVI 08:10
PROVIDERS: ATTEND Internal Medicine Cardiovascular Disease
DX: I77.1 Stricture of artery (principal); I70.212 Atherosclerosis of native arteries of extremities with intermittent claudication, left leg; Z01.812 Encounter for preprocedural laboratory examination; Z79.01 Long term (current) use of anticoagulants
CPT/HCPCS: 36415; 71046; 80048; 85025; 85610; 85730; 93005; G0463

== ENCOUNTER → 2022-08-01 | Outpatient (CLI) | payer MEDICARE, BC | END | disposition home or self-care (01) | LOC: Rad HDHVI 09:00 | PROVIDERS: ATTEND Internal Medicine Cardiovascular Disease | DX: I70.202 Unspecified atherosclerosis of native arteries of extremities, left leg (principal) | CPT/HCPCS: 93926 ==

== ENCOUNTER → 2022-09-03 | Outpatient (CLI) | payer MEDICARE, BC ==
[~2022-09-03] VITALS: Ht 170.2 cm; Wt 74.8 kg
== END | disposition home or self-care (01) ==
LOC: Rad HDHVI 08:43
PROVIDERS: ATTEND Internal Medicine Cardiovascular Disease
DX: R06.02 Shortness of breath (principal); I25.2 Old myocardial infarction; I73.9 Peripheral vascular disease, unspecified; I10 Essential (primary) hypertension; E78.00 Pure hypercholesterolemia, unspecified; D68.59 Other primary thrombophilia; Z95.0 Presence of cardiac pacemaker
CPT/HCPCS: 78452; 93017; 96374; A9500

== ENCOUNTER → 2022-09-24 | Outpatient (CLI) | payer MEDICARE, BC ==
[2022-09-24 10:29] LABS: Basophils # (auto) 0.1 10 ^3/uL (0-0.2); Basophils % (auto) 1.1 % (0.0-2.0); Eosinophils # (auto) 0.2 10 ^3/uL (0-0.8); Eosinophils % (auto) 4.1 % (0.0-7.0); Hematocrit 41.2 % (41.0-53.0); Hemoglobin 13.7 g/dL (13.5-17.5); Lymphocytes # (auto) 1.2 10 ^3/uL (0.4-5.4); Lymphocytes % (auto) 22.2 % (10.0-50.0); Mean Corpuscular Hemoglobin 32.8 pg (28.0-32.0); Mean Corpuscular Hgb Conc. 33.3 g/dL (32.0-36.0); Mean Corpuscular Volume 98.4 fL (80.0-100.0); Monocytes # (auto) 0.6 10 ^3/uL (0-1.3); Monocytes % (auto) 10.2 % (0.0-12.0); Neutrophils # (auto) 3.5 10 ^3/uL (1.6-8.6); Neutrophils % (auto) 62.4 % (37.0-80.0); Red Blood Cells 4.18 10^6/uL (4.5-5.90); Red Cell Distribution Width 13.5 % (11.8-14.3); White Blood Cell 5.6 10^3/uL (4.4-10.8)
[2022-09-24 11:13] LABS: Albumin 4.1 g/dL (3.4-5.0); BUN/Creatinine Ratio 17.5; Calcium 8.9 mg/dL (8.5-10.1); Potassium 5.3 mmol/L (3.5-5.1); Total Protein 7.2 g/dL (6.4-8.2)
[2022-09-24 11:15] LABS: Bilirubin, Total 0.8 mg/dL (0.2-1.0)
== END | disposition home or self-care (01) ==
LOC: LAB 10:14
PROVIDERS: ATTEND Nurse Practitioner Family
DX: I11.0 Hypertensive heart disease with heart failure (principal); I50.23 Acute on chronic systolic (congestive) heart failure; R35.1 Nocturia; N39.0 Urinary tract infection, site not specified
CPT/HCPCS: 36415; 80053; 80061; 84153; 84154; 85025

== ENCOUNTER → 2022-10-22 | Outpatient (CLI) | payer MEDICARE, BC ==
[2022-10-22 09:09] VITALS: BP 155/71
[2022-10-22 09:19] VITALS: BP 155/67
[2022-10-22 12:20] LABS: Basophils # (auto) 0.1 10 ^3/uL (0-0.2); Basophils % (auto) 1.2 % (0.0-2.0); Eosinophils # (auto) 0.4 10 ^3/uL (0-0.8); Eosinophils % (auto) 5.4 % (0.0-7.0); Hematocrit 39.9 % (41.0-53.0); Hemoglobin 13.3 g/dL (13.5-17.5); Lymphocytes # (auto) 1.6 10 ^3/uL (0.4-5.4); Lymphocytes % (auto) 23.8 % (10.0-50.0); Mean Corpuscular Hemoglobin 32.9 pg (28.0-32.0); Mean Corpuscular Hgb Conc. 33.4 g/dL (32.0-36.0); Mean Corpuscular Volume 98.4 fL (80.0-100.0); Monocytes # (auto) 0.6 10 ^3/uL (0-1.3); Monocytes % (auto) 8.5 % (0.0-12.0); Neutrophils % (auto) 61.1 % (37.0-80.0); Red Blood Cells 4.05 10^6/uL (4.5-5.90); Red Cell Distribution Width 13.5 % (11.8-14.3); White Blood Cell 6.6 10^3/uL (4.4-10.8)
[2022-10-22 12:28] LABS: BUN/Creatinine Ratio 16.8; Calcium 8.9 mg/dL (8.5-10.1); Potassium 5.2 mmol/L (3.5-5.1)
[2022-10-22 12:33] LABS: INR 1.07 (0.9-1.15)
== END | disposition home or self-care (01) ==
LOC: Rad HDHVI 08:59
PROVIDERS: ATTEND Internal Medicine Cardiovascular Disease
DX: I50.43 Acute on chronic combined systolic (congestive) and diastolic (congestive) heart failure (principal)
CPT/HCPCS: 36415; 71046; 80048; 85025; 85610; 85730; 93005; G0463

== ENCOUNTER → 2022-12-10 | Outpatient (CLI) | payer MEDICARE, BC ==
[2022-12-10 09:30] VITALS: BP 152/70
[2022-12-10 09:48] VITALS: BP 138/67
[2022-12-10 12:18] LABS: Basophils # (auto) 0.1 10 ^3/uL (0-0.2); Basophils % (auto) 1.2 % (0.0-2.0); Eosinophils # (auto) 0.4 10 ^3/uL (0-0.8); Eosinophils % (auto) 6.8 % (0.0-7.0); Hematocrit 41.2 % (41.0-53.0); Hemoglobin 13.9 g/dL (13.5-17.5); Lymphocytes # (auto) 1.3 10 ^3/uL (0.4-5.4); Lymphocytes % (auto) 20.2 % (10.0-50.0); Mean Corpuscular Hemoglobin 33.3 pg (28.0-32.0); Mean Corpuscular Hgb Conc. 33.8 g/dL (32.0-36.0); Mean Corpuscular Volume 98.6 fL (80.0-100.0); Monocytes # (auto) 0.6 10 ^3/uL (0-1.3); Monocytes % (auto) 8.9 % (0.0-12.0); Neutrophils # (auto) 3.9 10 ^3/uL (1.6-8.6); Neutrophils % (auto) 62.9 % (37.0-80.0); Nucleated Red Blood Cells % 0.1 %; Red Blood Cells 4.18 10^6/uL (4.5-5.90); Red Cell Distribution Width 13.6 % (11.8-14.3); White Blood Cell 6.2 10^3/uL (4.4-10.8)
[2022-12-10 12:42] LABS: BUN/Creatinine Ratio 17.3; Potassium 4.6 mmol/L (3.5-5.1)
[2022-12-10 12:52] LABS: INR 1.01 (0.9-1.15); Partial Thromboplastin Time 25.5 sec (24.6-33.4)
== END | disposition home or self-care (01) ==
LOC: Rad HDHVI 08:54
PROVIDERS: ATTEND Internal Medicine Cardiovascular Disease
DX: I48.0 Paroxysmal atrial fibrillation (principal)
CPT/HCPCS: 36415; 71046; 80048; 85025; 85610; 85730; 93005; G0463

== ENCOUNTER → 2023-06-06 | Outpatient (CLI) | payer MEDICARE, BC ==
[~2023-06-06] MED LIST changes: -AMLO-489 PO; +AMLO1TAB22 PO; -LISI-716 PO; +LISI10TA34 PO
== END | disposition home or self-care (01) ==
LOC: Rad HDHVI 09:51
PROVIDERS: ATTEND Internal Medicine Cardiovascular Disease
DX: I08.8 Other rheumatic multiple valve diseases (principal); I10 Essential (primary) hypertension; I73.9 Peripheral vascular disease, unspecified
CPT/HCPCS: 93306

== ENCOUNTER → 2023-09-05 | Outpatient (CLI) | payer MEDICARE, BC ==
[2023-09-05 10:43] LABS: Basophils # (auto) 0.1 10 ^3/uL (0-0.2); Eosinophils # (auto) 0.2 10 ^3/uL (0-0.8); Eosinophils % (auto) 3.5 % (0.0-7.0); Hematocrit 39.1 % (41.0-53.0); Hemoglobin 13.1 g/dL (13.5-17.5); Lymphocytes # (auto) 1.4 10 ^3/uL (0.4-5.4); Lymphocytes % (auto) 20.2 % (10.0-50.0); Mean Corpuscular Hemoglobin 33.1 pg (28.0-32.0); Mean Corpuscular Hgb Conc. 33.5 g/dL (32.0-36.0); Mean Corpuscular Volume 98.9 fL (80.0-100.0); Monocytes # (auto) 0.6 10 ^3/uL (0-1.3); Monocytes % (auto) 8.3 % (0.0-12.0); Neutrophils # (auto) 4.4 10 ^3/uL (1.6-8.6); Nucleated Red Blood Cells % 0.1 %; Red Blood Cells 3.95 10^6/uL (4.5-5.90); White Blood Cell 6.7 10^3/uL (4.4-10.8)
[2023-09-05 11:30] LABS: Alanine Aminotransferase 20 U/L (7-40); Albumin 4.7 g/dL (3.2-4.8); Alkaline Phosphatase 95 U/L (46-116); Anion Gap 7 (5-15); Aspartate Aminotransferase 16 U/L (13-40); BUN/Creatinine Ratio 13.7 (10.0-20.0); Blood Urea Nitrogen 24 mg/dL (9-23); Calcium 9.5 mg/dL (8.7-10.4); Carbon Dioxide 24 mmol/L (20-30); Chloride 110 mmol/L (98-107); Glucose 102 mg/dL (74-106); Sodium 141 mmol/L (136-145)
[2023-09-05 11:31] LABS: Bilirubin, Total 0.6 mg/dL (0.2-1.0); Total Protein 7.2 g/dL (5.7-8.2)
[2023-09-05 11:51] LABS: Triglycerides 80 mg/dL (< 150)
[2023-09-05 11:52] LABS: LDL Cholesterol 76 mg/dL (< 100)
[2023-09-05 11:53] LABS: Cholesterol 133 mg/dL (< 200); HDL Cholesterol 45 mg/dL (40-59)
[2023-09-06 06:06] LABS: PSA Free 1.15 ng/mL; Prostate Specific Antigen 6.3 ng/mL (0.0-4.0)
== END | disposition home or self-care (01) ==
LOC: LAB 10:20
DX: I73.9 Peripheral vascular disease, unspecified (principal); N40.1 Benign prostatic hyperplasia with lower urinary tract symptoms; Z79.899 Other long term (current) drug therapy
CPT/HCPCS: 36415; 80053; 80061; 84153; 84154; 85025

== ENCOUNTER → 2024-08-12 | Outpatient (CLI) | payer MEDICARE, BC ==
[~2024-08-12] MED LIST changes: +IOHEXOL 350 MG/ML 100ML IJ ONE; +READI-CAT 2 (BARIUM SULF)(VANILLA SMOOTHIE) 450ML ONE
[2024-08-12 08:48] VITALS: BP 130/63; PULSE 81; RESP 16; O2SAT 99
[2024-08-12] MEDS: SODIUM CHLORIDE 0.9% 500 ML IV ONE (08:48)
[2024-08-12 11:06] VITALS: BP 128/63; PULSE 68; RESP 18; O2SAT 99
== END | disposition home or self-care (01) ==
LOC: Rad HDHVI 08:41
PROVIDERS: ATTEND Internal Medicine Cardiovascular Disease
DX: N28.9 Disorder of kidney and ureter, unspecified (principal); K62.5 Hemorrhage of anus and rectum; I73.9 Peripheral vascular disease, unspecified; Z79.899 Other long term (current) drug therapy
CPT/HCPCS: 74177; 96360; 96361; G0463; J7040; Q9967

== ENCOUNTER → 2024-09-08 | Outpatient (CLI) | payer MEDICARE, BC ==
[~2024-09-08] MED LIST changes: -IOHEXOL 350 MG/ML 100ML IJ ONE; -READI-CAT 2 (BARIUM SULF)(VANILLA SMOOTHIE) 450ML ONE
== END | disposition home or self-care (01) ==
LOC: LAB 07:25
PROVIDERS: ATTEND Internal Medicine Cardiovascular Disease
DX: R94.4 Abnormal results of kidney function studies (principal)
CPT/HCPCS: 36415; 82565; 84520

== ENCOUNTER → 2024-09-09 | Outpatient (CLI) | payer MEDICARE, BC ==
[~2024-09-09] MED LIST changes: +IOHEXOL 350 MG/ML 100ML IJ ONE
[2024-09-09 11:30] VITALS: BP 128/68; PULSE 80; RESP 18; O2SAT 98
[2024-09-09] MEDS: SODIUM CHLORIDE 0.9% 500 ML IV ONE (11:30)
[2024-09-09 13:30] VITALS: BP 143/59; PULSE 69; RESP 18; O2SAT 98
--- NOTE | 2024-09-09 13:57 | DVH ---
Exam: CT CT AB PEL WITH IV CON ONLY History: KIDNEY LESION COMPARISON: CT CT ABD PELVIS W CON-ORAL IV on DOS: 08/12/24 Technique: Multidetector spiral CT of the abdomen and pelvis was performed from lung bases to pubic symphysis. Intravenous contrast was administered during this examination. Portal venous imaging was obtained. Axial, coronal and sagittal multiplanar reformats were performed by the technologist on a separate workstation. Radiation Dose : Abdomen/Pelvis: CTDIvol 6 mGy, DLP 307.53 mGy*cm. CONTRAST: Type of contrast: Omni 300 Contrast injected: 50 mL Findings: Lung Bases: No acute or significant lung base finding. Normal heart size. No pleural or pericardial effusion. Liver: The liver is normal in size. No focal lesions. Normal hepatic vascular enhancement. Gallbladder and biliary Tree: Gallbladder is surgically absent. Spleen: Unremarkable Pancreas: The pancreas is normal in appearance without focal lesions or abnormal enhancement. Adrenal Glands: Unremarkable Kidneys: There is an exophytic right renal lesion measuring up to 12mm which demonstrates high houn sfield units. There is a left renal cyst measuring up to 16mm. No hydronephrosis. Bladder: Unremarkable Bowel: The stomach is grossly normal in appearance. Small bowel and colon are normal in caliber and d istribution. The appendix is not visualized; however, no secondary findings of acute appendicitis id entified. Ascites: Absent Lymphadenopathy: No mesenteric, retroperitoneal or periportal lymphadenopathy. Abdominal wall and Mesentery: Unremarkable. Vasculature: The visualized abdominal aorta is normal in size and caliber. There is calcified atheros clerotic plaque involving the aorta and its branches. Abdominal and pelvic vessels demonstrate normal enhancement. Pelvic Organs: Unremarkable Musculoskeletal: No aggressive focal bony lesions, acute fractures or dislocation. IMPRESSION: 1. High density right renal lesion could represent a hyperdense cyst. A mass is not excluded. Recomme nd further evaluation with MRI of the abdomen with contrast. Radiation optimization: All CT scans at this facility use at least one of these dose optimization rina hniques: Automated exposure control mA and/or kV adjustment per patient size (includes targeted exams where dose is matched to clinical indication) or iterative reconstruction. HS:Y
== END | disposition home or self-care (01) ==
LOC: Rad HDHVI 11:06
PROVIDERS: ATTEND Internal Medicine Cardiovascular Disease
DX: N28.9 Disorder of kidney and ureter, unspecified (principal); I73.9 Peripheral vascular disease, unspecified; Z79.899 Other long term (current) drug therapy
CPT/HCPCS: 74177; 96360; 96361; G0463; J7040; Q9967

== ENCOUNTER 2024-10-08 07:50 | Day surgery (SDC) | payer MEDICARE, BC ==
[2024-10-05 14:53] LABS: Urine Bacteria None Seen /hpf (None Seen); Urine WBC None Seen /hpf (0 - 3)
[2024-10-05 14:56] LABS: Basophils # (auto) 0.1 10 ^3/uL (0-0.2); Basophils % (auto) 1.6 % (0.0-2.0); Eosinophils # (auto) 0.3 10 ^3/uL (0-0.8); Eosinophils % (auto) 4.9 % (0.0-7.0); Hematocrit 34.2 % (41.0-53.0); Hemoglobin 11.7 g/dL (13.5-17.5); Lymphocytes # (auto) 1.5 10 ^3/uL (0.4-5.4); Lymphocytes % (auto) 23.8 % (10.0-50.0); Mean Corpuscular Hemoglobin 33.7 pg (28.0-32.0); Mean Corpuscular Hgb Conc. 34.1 g/dL (32.0-36.0); Mean Corpuscular Volume 98.8 fL (80.0-100.0); Monocytes # (auto) 0.7 10 ^3/uL (0-1.3); Monocytes % (auto) 10.6 % (0.0-12.0); Neutrophils # (auto) 3.7 10 ^3/uL (1.6-8.6); Neutrophils % (auto) 59.1 % (37.0-80.0); Platelet Count (auto) 196 10^3/uL (140-450); Red Blood Cells 3.47 10^6/uL (4.5-5.90); Red Cell Distribution Width 13.3 % (11.8-14.3); White Blood Cell 6.2 10^3/uL (4.4-10.8)
[2024-10-05 15:12] LABS: INR 1.02 (0.9-1.15); Partial Thromboplastin Time 25.3 SEC (24.5-34.5); Prothrombin Time 10.8 sec (9.3-11.8)
[2024-10-05 15:23] LABS: Alanine Aminotransferase 23 U/L (7-40); Albumin 4.6 g/dL (3.2-4.8); Alkaline Phosphatase 100 U/L (46-116); Anion Gap 9 (5-15); Aspartate Aminotransferase 23 U/L (13-40); BUN/Creatinine Ratio 16.1 (10.0-20.0); Bilirubin, Total 0.6 mg/dL (0.2-1.0); Blood Urea Nitrogen 26 mg/dL (9-23); Calcium 10.5 mg/dL (8.7-10.4); Carbon Dioxide 22 mmol/L (20-31); Chloride 110 mmol/L (98-107); Glucose 97 mg/dL (74-106); Potassium 5.1 mmol/L (3.5-5.1); Sodium 141 mmol/L (136-145); Total Protein 7.2 g/dL (5.7-8.2)
[2024-10-05 15:33] LABS: Urine Blood Negative /uL (Negative); Urine Clarity Clear (Clear); Urine Color Light-Yellow (Yellow); Urine Protein, UAD Negative (Negative); Urine Specific Gravity 1.008 (1.001-1.035); Urine Urobilinogen Normal (Negative); Urine pH 5.5 (5.0-9.0)
[~2024-10-08] VITALS: Ht 170.2 cm; Wt 75.7 kg
[~2024-10-08 07:50] MED LIST changes: -B-COTAB59 PO; -CALC-312 PO; +CARV6.2551 PO; +CLOP75TA70 PO; -IOHEXOL 350 MG/ML 100ML IJ ONE; +LATA0.008 EACHEYE; -MULT-1066 PO; +RELU120T PO; +TAMS0.4C39 PO; +TIMO0.5S28 EACHEYE
[2024-10-08] MEDS ORDERED: LIDOCAINE 1% INJ PF 5ML AMP ONE (08:45)
[2024-10-08] MEDS ORDERED: PROPOFOL 10 MG/ML 20 ML IV ONE (08:45)
[2024-10-08 09:01] VITALS: PULSE 79; RESP 14; O2SAT 99
--- NOTE | 2024-10-08 09:01 | DVHHP2 ---
GI H&P Pre-Op Assessment Date: 10/08/24 Chief complaint: rectal bleeding HPI: per clinic note Past medical history: per clinic note Past surgical history: per clinic note Family history: per clinic note Physical exam: General: NAD, AAOX3 HEENT: PERRL, no scleral icterus, normal hearing, gums without lesions or bl eeding, oropharynx clear without erythema or exudate. Neck: Supple without enlargement of the thyroid, or lymphadenopathy. Chest: Normal size and shape, no tenderness, lung carrasco clear to auscultation and percussion, nonlabored breathing. Heart: RRR, no murmur Abdomen: non-distended, no tenderness to palpation, +BS, no hepatosplenomegaly Extremities: no edema Neurological: CN II-XII intact, sensation intact in all extremities, 5+ strength in all extremities Skin: No rashes, No jaundice Assessment: - rectal bleeding Plan: - Colonoscopy - Risks (bleeding, infection, perforation, reaction to sedation medications and cardiopulmonary arrest) and benefit of the procedure were explained to patient. Patient agrees to undergo the procedure. RENEE MORALES MD Oct 08, 2024 09:01
--- NOTE | 2024-10-08 09:03 | DVHOP2 ---
Operative Report DATE OF OPERATION: 10/08/24 PROCEDURE: Colonoscopy. PREOPERATIVE INDICATION: The patient is a 89 -year-old male undergoing colonoscopy for rectal bleeding. POSTOPERATIVE DIAGNOSES: 1. Few diverticulosis in the left colon 2. 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 PROCEDURE PERFORMED BY: Gerry Lindo M.D. SCOPE: Olympus videocolonoscope. ASA CLASS: 4 PREOPERATIVE MEDICATIONS: MAC with Mauricio LIZA PROCEDURE IN DETAIL: After obtaining an informed consent, the patient was placed on left lateral decubitus position. He was then sedated with the above medications. A rectal examination was performed that was normal. The colonoscope was then passed through the anus into the rectosigmoid and through the descending, transverse, and ascending colon up to the cecum with visu alization of the appendiceal orifice, base of the cecum and the ileocecal valve. No mass or polyp was observed. There were few diverticulosis in the left colon. There was proctitis that is likely due to previous radiation therapy. The colonoscope was then withdrawn. The patient tolerated the procedure well without difficulty. WITHDRAWAL TIME: 6 minutes QUALITY OF THE PREP: [place] Bowel Prep score: 7 COMPLICATIONS : None SPECIMENS: None DISPOSITION: D/C to home PLAN: 1. Will try him on steroid enema to see if it help him with the proctitis. GERRY LINDO MD Oct 08, 2024 09:03
--- NOTE | 2024-10-08 09:04 | DVHDS2 ---
Physician Discharge Progress N Final Diagnosis: Proctitis, diverticulosis Operations or Procedures: Operations or Procedures Colonoscopy Condition on Discharge: Good Disposition: Home Discharge Instructions: Diet: Regular Activity: No Restrictions, As Tolerated Medications: Resume previous home medications Follow Up Care: Discharge Statement: "Patient was advised to return to the ER or call 911 if any headaches, dizziness, shortness of breath, chest pain, abdominal pain, bleeding, fevers, or worsening of medical condition. Patient was counseled about treatment plan, medications, possible side effects, patientverbalized understanding. All questions were answered to the best of my ability. This discharge took greater then 30 minutes in planning, reviewing documentation, counseling the patient, and discussing with other team members." RENEE MORALES MD Oct 08, 2024 09:04
[2024-10-08 09:41] VITALS: BP 116/57; PULSE 81; RESP 12; O2SAT 99
== END 2024-10-08 09:41 | disposition home or self-care (01) ==
LOC: GI 07:50
PROVIDERS: ATTEND Internal Medicine Gastroenterology
DX: K62.5 Hemorrhage of anus and rectum (principal); K57.30 Diverticulosis of large intestine without perforation or abscess without bleeding; K62.89 Other specified diseases of anus and rectum; I25.10 Atherosclerotic heart disease of native coronary artery without angina pectoris; I42.9 Cardiomyopathy, unspecified; I12.9 Hypertensive chronic kidney disease with stage 1 through stage 4 chronic kidney disease, or unspecified chronic kidney disease; N18.9 Chronic kidney disease, unspecified; I48.91 Unspecified atrial fibrillation; Z79.899 Other long term (current) drug therapy; Z95.0 Presence of cardiac pacemaker; Z85.46 Personal history of malignant neoplasm of prostate; Z90.49 Acquired absence of other specified parts of digestive tract; Z95.820 Peripheral vascular angioplasty status with implants and grafts; Z98.890 Other specified postprocedural states; Z87.891 Personal history of nicotine dependence
CPT/HCPCS: 36415; 45378; 80053; 81001; 85025; 85610; 85730; J2704; J7030

== ENCOUNTER → 2024-10-15 | Outpatient (CLI) | payer MEDICARE, BC | END | disposition home or self-care (01) | LOC: LAB 09:02 | PROVIDERS: ATTEND Radiology Radiation Oncology | DX: C61 Malignant neoplasm of prostate (principal) | CPT/HCPCS: 84153 ==

== ENCOUNTER → 2024-12-09 | Outpatient (CLI) | payer MEDICARE, BC ==
[2024-12-09 11:30] VITALS: BP 154/91; PULSE 77; RESP 18; O2SAT 98
[2024-12-09] MEDS: IRON SUCROSE 20 mg/ml 10ml VIAL IV ONE (11:48)
[2024-12-09] MEDS: IRON SUCROSE COMPLEX 110 ML IV ONE (11:50)
[2024-12-09 12:58] VITALS: BP 157/74; PULSE 70; RESP 16; O2SAT 98
== END | disposition home or self-care (01) ==
LOC: CHF HDHVI 11:35
PROVIDERS: ATTEND Internal Medicine Cardiovascular Disease
DX: D64.9 Anemia, unspecified (principal); C61 Malignant neoplasm of prostate; I13.0 Hypertensive heart and chronic kidney disease with heart failure and stage 1 through stage 4 chronic kidney disease, or unspecified chronic kidney disease; E11.22 Type 2 diabetes mellitus with diabetic chronic kidney disease; N18.9 Chronic kidney disease, unspecified; I50.33 Acute on chronic diastolic (congestive) heart failure; I48.91 Unspecified atrial fibrillation; E78.5 Hyperlipidemia, unspecified; E03.9 Hypothyroidism, unspecified; Z79.899 Other long term (current) drug therapy; Z79.02 Long term (current) use of antithrombotics/antiplatelets; Z87.891 Personal history of nicotine dependence
CPT/HCPCS: 96365; G0463; J1756

== ENCOUNTER → 2025-01-11 | Outpatient (CLI) | payer MEDICARE, BC | END | disposition home or self-care (01) | LOC: Rad HDHVI 09:00 | PROVIDERS: ATTEND Internal Medicine Cardiovascular Disease | DX: Z01.810 Encounter for preprocedural cardiovascular examination (principal) | CPT/HCPCS: 93306 ==

== ENCOUNTER → 2025-01-27 | Outpatient (CLI) | payer MEDICARE, BC | END | disposition home or self-care (01) | LOC: Rad HDHVI 08:53 | PROVIDERS: ATTEND Internal Medicine Cardiovascular Disease | DX: I50.23 Acute on chronic systolic (congestive) heart failure (principal) | CPT/HCPCS: 93880 ==

== ENCOUNTER 2025-09-08 06:23 | Outpatient (CLI) | payer MEDICARE, BC | END 2025-09-08 17:00 | disposition home or self-care (01) | LOC: LAB 06:23 | PROVIDERS: ATTEND Nurse Practitioner Family | DX: N39.0 Urinary tract infection, site not specified (principal) | CPT/HCPCS: 87086 ==

== ENCOUNTER 2025-10-25 11:25 | Outpatient (CLI) | payer MEDICARE, BC ==
[2025-10-26 10:07] LABS: Prostate Specific Antigen <0.1 ng/mL (0.0-4.0)
== END 2025-10-25 17:00 | disposition home or self-care (01) ==
LOC: LAB 11:25
PROVIDERS: ATTEND Radiology Radiation Oncology
DX: C61 Malignant neoplasm of prostate (principal)
CPT/HCPCS: 84154